=== PATIENT | female | born 1980 | race Caucasian/White ===

== ENCOUNTER 2016-10-07 05:36 | Inpatient (IN) | payer OTHER ==
[2016-10-07] VITALS (23 sets, daily range): BP systolic 102–138; BP diastolic 57–94; PULSE 80–113; RESP 14–20; TEMP 98.4; O2SAT 88–100
[2016-10-07] MEDS ORDERED: SODIUM CHLOR 0.9% 1000 ML INJ 1,000 ML IV ONE (05:41)
[2016-10-07] MEDS ORDERED: SODIUM CHLORIDE 0.9% FLUSH 10 ML FLUSH IVF PRN (05:45)
--- NOTE | 2016-10-07 05:52 | PD ---
HPI Chief Complaint: OD/ Ingestion Time Seen by Provider: 05:41 Travel History International Travel<30 days: No (unable to obtain) Contact w/Intl Traveler<30days: No (unable to obtain) History of Present Illness HPI The patient is a 36-year-old female who presents to the emergency department via EMS from [place], [place] after an overdose. According to the police affidavit the patient's wall approximately 20 Xanax tablets and a few Soma tablets, had been drinking alcohol, was found in her car by her father. EMS and the police were called, the patient was placed under a [place] act. According to EMS the patient was awake and alert when they arrived, however, became unresponsive in route to the hospital and they attempted to intubate the patient while they were pulling into the emergency department. EMS states there was unable to intubate the patient and then the patient did awaken and regained her gag reflex. Upon arrival the patient is somewhat somnolent, arouses to painful stimuli, but falls asleep easily. She is unable to provide any history. [facility] Past Medical History Medical History: Unable to Obtain Tetanus Vaccination: Unknown ?: Unknown Past Surgical History Surgical History: Unable to Obtain Social History Alcohol Use: Yes Tobacco Use: No (unable to obtain) Substance Use: Yes (apparently took 20 Xanax and a few Soma tablets earlier tonight) Allergies-Medications (Allergen,Severity, Reaction): Coded Allergies: UNOBTAINABLE (Unverified , 10/07/16) Reported Meds & Prescriptions Reported Meds & Active Scripts Active Active Prescriptions or Reported Medications Unobtainable Review of Systems ROS Limitations: Altered Mental Status, Poor Historian Except as stated in HPI: all other systems reviewed are Neg Psychiatric: Positive: Substance Abuse Physical Exam Exam Limitations: Clinical Condition, Intoxication, Altered Mental Status, Poor Historian Narrative GENERAL: 36-year-old female appears older than her stated age, arouses to painful stimuli, but falls asleep easily. SKIN: Focused skin assessment warm/dry. HEAD: Atraumatic. Normocephalic. EYES: Pupils equal and round. Pupils are 2 mm bilateral. Mild injection. ENT: No nasal bleeding or discharge. Mucous membranes pink and moist. Positive gag reflex. NECK: Trachea midline. No JVD. CARDIOVASCULAR: Regular rate and rhythm. No murmur appreciated. Heart rate in the 90s. RESPIRATORY: No accessory muscle use. Clear to auscultation. Breath sounds equal bilaterally. GASTROINTESTINAL: Abdomen soft, non-tender, nondistended. No rebound tenderness. MUSCULOSKELETAL: No obvious deformities. No clubbing. No cyanosis. No edema. NEUROLOGICAL: Eyes closed, nonverbal, arouses to painful stimuli. Back: No obvious deformity or trauma to the posterior aspect of the back and no obvious step-offs over the thoracic lumbar vertebrae. PSYCHIATRIC: Unable to assess. Data Data Last Documented VS Vital Signs Date Time Temp Pulse Resp B/P Pulse Ox O2 Delivery O2 Flow Rate FiO2 10/07/16 06:30 100 100 10/07/16 06:15 113 16 138/93 10/07/16 06:04 Nasal Cannula 3 Orders Electrocardiogram (10/07/16 05:41) Complete Blood Count With Diff (10/07/16 05:41) Comprehensive Metabolic Panel (10/07/16 05:41) Prothrombin Time / Inr (Pt) (10/07/16 05:41) Act Partial Throm Time (Ptt) (10/07/16 05:41) Urinalysis - C+S If Indicated (10/07/16 05:41) Chest, Single Ap (10/07/16 05:41) Ct Brain W/O Iv Contrast(Rout) (10/07/16 05:41) Iv Access Insert/Monitor (10/07/16 05:41) Cath For Specimen (10/07/16 05:41) Ecg Monitoring (10/07/16 05:41) Oximetry (10/07/16 05:41) Psych Screen (10/07/16 05:41) Sodium Chloride 0.9% Flush (Ns Flush) (10/07/16 05:45) Sodium Chlor 0.9% 1000 Ml Inj (Ns 1000 M (10/07/16 05:41) Drug Screen, Random Urine (10/07/16 05:41) Alcohol (Ethanol) (10/07/16 05:41) Salicylates (Aspirin) (10/07/16 05:41) Tylenol (Acetaminophen) (10/07/16 05:41) Resp Et Co2 Monitor (10/07/16 ) Etomidate Inj (Amidate Inj) (10/07/16 05:59) Etomidate Inj (Amidate Inj) (10/07/16 06:00) Succinylcholine Inj (Quelicin Inj) (10/07/16 06:00) Succinylcholine Inj (Quelicin Inj) (10/07/16 05:59) Chest, Single Ap (10/07/16 ) Midazolam Inj (Versed Inj) (10/07/16 06:15) Midazolam 100 Mg/Ml Inj (Versed 100 Mg/M (10/07/16 06:15) Urinary Catheter Insert/Apply (10/07/16 06:12) Ng Gastric Tube Insert/Monitor (10/07/16 06:12) Midazolam 100 Mg/Ml Inj (Versed 100 Mg/M (10/07/16 06:16) Arterial Blood Gas (Abg) (10/07/16 ) Admit Order (Ed Use Only) (10/07/16 06:33) Labs Laboratory Tests Test 10/07/16 10/07/16 05:45 05:55 White Blood Count 9.2 TH/MM3 Red Blood Count 4.96 MIL/MM3 Hemoglobin 14.4 GM/DL Hematocrit 43.2 % Mean Corpuscular Volume 87.1 FL Mean Corpuscular Hemoglobin 29.1 PG Mean Corpuscular Hemoglobin 33.4 % Concent Red Cell Distribution Width 15.8 % Platelet Count 334 TH/MM3 Mean Platelet Volume 8.6 FL Neutrophils (%) (Auto) 68.5 % Lymphocytes (%) (Auto) 24.1 % Monocytes (%) (Auto) 5.6 % Eosinophils (%) (Auto) 0.9 % Basophils (%) (Auto) 0.9 % Neutrophils # (Auto) 6.3 TH/MM3 Lymphocytes # (Auto) 2.2 TH/MM3 Monocytes # (Auto) 0.5 TH/MM3 Eosinophils # (Auto) 0.1 TH/MM3 Basophils # (Auto) 0.1 TH/MM3 CBC Comment DIFF FINAL Differential Comment Prothrombin Time 10.0 SEC Prothromb Time International 0.9 RATIO Ratio Activated Partial 25.5 SEC Thromboplast Time Sodium Level 143 MEQ/L Potassium Level 4.0 MEQ/L Chloride Level 109 MEQ/L Carbon Dioxide Level 26.8 MEQ/L Anion Gap 7 MEQ/L Blood Urea Nitrogen 8 MG/DL Creatinine 0.92 MG/DL Estimat Glomerular Filtration 70 ML/MIN Rate Random Glucose 102 MG/DL Calcium Level 8.5 MG/DL Total Bilirubin 0.2 MG/DL Aspartate Amino Transf 17 U/L (AST/SGOT) Alanine Aminotransferase 17 U/L (ALT/SGPT) Alkaline Phosphatase 78 U/L Total Protein 7.7 GM/DL Albumin 4.1 GM/DL Salicylates Level 5.1 MG/DL Acetaminophen Level 9.9 MCG/ML Ethyl Alcohol Level 237 MG/DL Urine Color LIGHT-YELLOW Urine Turbidity CLEAR Urine pH 6.0 Urine Specific [place] 1.004 Urine Protein NEG mg/dL Urine Glucose (UA) NEG mg/dL Urine Ketones NEG mg/dL Urine Occult Blood NEG Urine Nitrite NEG Urine Bilirubin NEG Urine Urobilinogen LESS THAN 2.0 MG/DL Urine Leukocyte Esterase NEG Urine RBC LESS THAN 1 /hpf Urine WBC LESS THAN 1 /hpf Urine Mucus FEW /lpf Microscopic Urinalysis Comment CATH-CULT NOT IND Urine Opiates Screen NEG Urine Barbiturates Screen NEG Urine Amphetamines Screen NEG Urine Benzodiazepines Screen POS Urine Cocaine Screen NEG Urine Cannabinoids Screen POS MDM Medical Decision Making Medical Screen Exam Complete: Yes Emergency Medical Condition: Yes Medical Record Reviewed: Yes Interpretation(s) EKG reveals normal sinus rhythm with a rate of 99. No ischemic changes or ectopy noted. Laboratory Tests Test 10/07/16 05:45 White Blood Count 9.2 TH/MM3 Red Blood Count 4.96 MIL/MM3 Hemoglobin 14.4 GM/DL Hematocrit 43.2 % Mean Corpuscular Volume 87.1 FL Mean Corpuscular Hemoglobin 29.1 PG Mean Corpuscular Hemoglobin 33.4 % Concent Red Cell Distribution Width 15.8 % Platelet Count 334 TH/MM3 Mean Platelet Volume 8.6 FL Neutrophils (%) (Auto) 68.5 % Lymphocytes (%) (Auto) 24.1 % Monocytes (%) (Auto) 5.6 % Eosinophils (%) (Auto) 0.9 % Basophils (%) (Auto) 0.9 % Neutrophils # (Auto) 6.3 TH/MM3 Lymphocytes # (Auto) 2.2 TH/MM3 Monocytes # (Auto) 0.5 TH/MM3 Eosinophils # (Auto) 0.1 TH/MM3 Basophils # (Auto) 0.1 TH/MM3 CBC Comment DIFF FINAL Differential Comment Prothrombin Time 10.0 SEC Prothromb Time International 0.9 RATIO Ratio Activated Partial 25.5 SEC Thromboplast Time Sodium Level 143 MEQ/L Potassium Level 4.0 MEQ/L Chloride Level 109 MEQ/L Carbon Dioxide Level 26.8 MEQ/L Anion Gap 7 MEQ/L Blood Urea Nitrogen 8 MG/DL Creatinine 0.92 MG/DL Estimat Glomerular Filtration 70 ML/MIN Rate Random Glucose 102 MG/DL Calcium Level 8.5 MG/DL Total Bilirubin 0.2 MG/DL Aspartate Amino Transf 17 U/L (AST/SGOT) Alanine Aminotransferase 17 U/L (ALT/SGPT) Alkaline Phosphatase 78 U/L Total Protein 7.7 GM/DL Albumin 4.1 GM/DL Salicylates Level 5.1 MG/DL Acetaminophen Level 9.9 MCG/ML Ethyl Alcohol Level 237 MG/DL CT of the brain is negative Last Impressions Head CT 10/07/16 0541 Signed Impressions: Service Date/Time: Friday, October 07, 2016 06:35 - CONCLUSION: Negative noncontrast CT brain. Darwin Mooney MD Chest X-Ray 10/07/16 0541 Signed Impressions: Service Date/Time: Friday, October 07, 2016 06:01 - CONCLUSION: The lungs are clear. Darwin Mooney MD Chest X-Ray 10/07/16 0000 Signed Impressions: Service Date/Time: Friday, October 07, 2016 06:19 - CONCLUSION: ET tube in good position. No infiltrates seen. Darwin Mooney MD Differential Diagnosis Differential diagnosis includes intentional overdose, accidental overdose, benzodiazepine overdose, alcohol intoxication, intracranial hemorrhage, metabolic encephalopathy, substance abuse. Narrative Course IV was established, labs are drawn and sent, and the patient was placed on cardiac telemetry monitoring and continuous pulse oximetry monitoring. EKG was ordered and interpreted. CT the brain was obtained. The patient said that was placed up at 30. The patient would arouse to painful stimuli and had a gag reflex, therefore, the patient was not intubated, but was monitored closely in the emergency department and placed on end-tidal CO2. The patient was reevaluated at 6 AM, her end-tidal CO2 and dropped, she required a chin lift and placement of an OP airway. The patient then had no gag reflex. Her respirations had slowed, therefore, the patient was intubated to protect her airway using RSI with etomidate and succinylcholine. Postintubation x-ray was obtained. The patient went to CT with respiratory therapy and nursing staff. The on-call desktop support technician was paged for admission. The patient had a Mota catheter and an OG placed. Post intubation ABG was obtained. Versed IV push and Versed drip was ordered as needed for sedation while intubated. Critical Care Narrative Aggregate critical care time was 45 minutes. Time to perform other separately billable procedures was not included in the critical care time. My time did not include minutes spent treating any other patients simultaneously or on activities that did not directly contribute to the patient's treatment. The services I provided to this patient were to treat and/or prevent clinically significant deterioration that could result in: Anoxia, hypoxia, aspiration, arrhythmia, . I provided critical care services requiring my management, as noted below: Chart data review, documentation time, medication orders and management, vital sign assessments/reviewing monitor data, ordering and reviewing lab tests, ordering and interpreting/reviewing x-rays and diagnostic studies, care of the patient and discussion of the patient with the admitting physicians. Procedures Procedure Narrative INTUBATION: The patient was put in optimal position for the procedure. Rapid sequence intubation was initiated by me using 20 milligrams of etomidate IV and 100 milligrams of succinylcholine IV. The patient was intubated with a 7-5 cuffed endotracheal tube. Tube placement was confirmed by visualization of the tube and balloon passing through the cords, capnometry and subsequent chest x- ray. Breath sounds were equal and well aerated bilaterally postintubation. No breath sounds over stomach. Patient tolerated procedure well. Physician Communication Physician Communication The on-call desktop support technician was paged for admission. I discussed the patient with Dr. Matson who agrees with admission. Diagnosis Primary Impression: Benzodiazepine overdose Qualified Code: T42.4X4A - Benzodiazepine overdose, undetermined intent, initial encounter Additional Impressions: Alcohol intoxication Qualified Code: F10.920 - Alcohol intoxication, uncomplicated Ingestion of substance Qualified Code: T65.94XA - Ingestion of substance, undetermined intent, initial encounter Admitting Information Admitting Physician Requests: Admit Scripts Unable to Obtain Active Prescriptions or Reported Meds Condition: Serious Yoni Encarnacion MD Oct 07, 2016 05:52
[2016-10-07] MEDS ORDERED: SUCCINYLCHOLINE CHLORIDE 200 MG/10 ML VIAL ONE (05:59)
[2016-10-07] MEDS ORDERED: ETOMIDATE 20 MG/10 ML VIAL ONE (05:59)
[2016-10-07] MEDS ORDERED: ETOMIDATE 20 MG/10 ML VIAL IV PUSH ONE (06:00)
[2016-10-07] MEDS ORDERED: SUCCINYLCHOLINE CHLORIDE 200 MG/10 ML VIAL IV PUSH ONE (06:00)
[2016-10-07 06:02] LABS: APTT (PATIENT) 25.5 SEC (24.3-30.1); INTERNATIONAL NORMALIZED RATIO 0.9 RATIO
[2016-10-07 06:04] LABS: AUTOMATED NEUTROPHIL # 6.3 TH/MM3 (1.8-7.7); BASOPHIL # 0.1 TH/MM3 (0-0.2); BASOPHIL % 0.9 % (0.0-2.0); EOSINOPHIL # 0.1 TH/MM3 (0-0.4); EOSINOPHIL % 0.9 % (0.0-4.0); HEMATOCRIT 43.2 % (35.0-46.0); HEMO FLAGS DIFF FINAL; LYMPH % 24.1 % (9.0-44.0); LYMPHOCYTE # 2.2 TH/MM3 (1.0-4.8); MEAN CELL VOLUME 87.1 FL (80.0-100.0); MEAN CORPUSCULAR HEMOGLOBIN 29.1 PG (27.0-34.0); MEAN CORPUSCULAR HGB CONC 33.4 % (32.0-36.0); MONO % 5.6 % (0.0-8.0); NEUT % 68.5 % (16.0-70.0); PLATELET COUNT 334 TH/MM3 (150-450); RED BLOOD COUNT 4.96 MIL/MM3 (4.00-5.30); RED CELL DISTRIBUTION WIDTH 15.8 % (11.6-17.2); WHITE BLOOD COUNT 9.2 TH/MM3 (4.0-11.0)
[2016-10-07] MEDS ORDERED: MIDAZOLAM HCL 2 MG/2 ML VIAL IV PUSH ONE (06:15)
[2016-10-07] MEDS ORDERED: MIDAZOLAM 100 MG/ML INJ 100 ML IV SCH (06:15)
[2016-10-07 06:16] LABS: ALT (GPT) 17 U/L (10-53); ANION GAP 7 MEQ/L (5-15); AST (GOT) 17 U/L (15-37); BICARBONATE 26.8 MEQ/L (21.0-32.0); BLOOD UREA NITROGEN 8 MG/DL (7-18); CHLORIDE 109 MEQ/L (98-107); GLOMERULAR FILTRATION RATE 70 ML/MIN (>89); SODIUM (NA) 143 MEQ/L (136-145)
[2016-10-07] MEDS ORDERED: MIDAZOLAM 100 MG/ML INJ 100 ML ONE (06:16)
[2016-10-07 06:18] LABS: ACETAMINOPHEN 9.9 MCG/ML (10.0-30.0); ALKALINE PHOSPHATASE 78 U/L (45-117); TOTAL BILIRUBIN ADULT 0.2 MG/DL (0.2-1.0)
--- NOTE | 2016-10-07 06:21 | RADRPT ---
EXAM DATE/TIME: 10/07/2016 06:01 [facility] COMPARISON: No previous studies available for comparison. INDICATIONS : Syncope, Shortness of breath. MEDICAL HISTORY : None. SURGICAL HISTORY : None. ENCOUNTER: Initial ACUITY: 1 day PAIN SCORE: 0/10 LOCATION: Bilateral chest FINDINGS: A single view of the chest demonstrates the lungs to be symmetrically aerated without evidence of mas s, infiltrate or effusion. The cardiomediastinal contours are unremarkable. Osseous structures are intact. CONCLUSION: The lungs are clear. Darwin Mooney MD on October 07, 2016 at 6:19 Board Certified Radiologist. This report was verified electronically.
--- NOTE | 2016-10-07 06:45 | RADRPT ---
EXAM DATE/TIME: 10/07/2016 06:19 [facility] COMPARISON: CHEST SINGLE AP, October 07, 2016, 6:01. INDICATIONS : Post intubation. MEDICAL HISTORY : None. SURGICAL HISTORY : None. ENCOUNTER: Initial ACUITY: 1 day PAIN SCORE: 0/10 LOCATION: Bilateral chest FINDINGS: Endotracheal tube tip well above the grupo. Gastric tube traverses the [id number]. The lungs ar e symmetrically aerated and clear. No pneumothorax. Both hemidiaphragms are well delineated. The h eart is normal in size. CONCLUSION: ET tube in good position. No infiltrates seen. Darwin Mooney MD on October 07, 2016 at 6:43 Board Certified Radiologist. This report was verified electronically.
--- NOTE | 2016-10-07 06:46 | RADRPT ---
EXAM DATE/TIME: 10/07/2016 06:35 [facility] COMPARISON: No previous studies available for comparison. INDICATIONS : Altered mental status, overdose. RADIATION DOSE: 41.41 CTDIvol (mGy) MEDICAL HISTORY : Non-responsive. SURGICAL HISTORY : Non-responsive. ENCOUNTER: Initial ACUITY: 1 day PAIN SCALE: Non-responsive LOCATION: cranial TECHNIQUE: Multiple contiguous axial images were obtained of the head. Using automated exposure control and adj ustment of the mA and/or kV according to patient size, radiation dose was kept as low as reasonably a chievable to obtain optimal diagnostic quality images. DICOM format image data is available electro nically for review and comparison. FINDINGS: CEREBRUM: The ventricles are normal for age. No evidence of midline shift, mass lesion, hemorrhage or acute in farction. No extra-axial fluid collections are seen. POSTERIOR FOSSA: The cerebellum and brainstem are intact. The 4th ventricle is midline. The cerebellopontine angle i s unremarkable. EXTRACRANIAL: The visualized portion of the orbits is intact. SKULL: The calvaria is intact. No evidence of skull fracture. CONCLUSION: Negative noncontrast CT brain. Darwin Mooney MD on October 07, 2016 at 6:44 Board Certified Radiologist. This report was verified electronically.
[2016-10-07 07:18] LABS: BLOOD GAS BASE EXCESS -3.9 mmol/L (-2-2); BLOOD GAS CARBOXYHEMOGLOBIN 3.6 % (0-4); BLOOD GAS HCO3 21 mmol/L (22-26); BLOOD GAS METHEMOGLOBIN 0.7 % (0-2); BLOOD GAS O2 HGB SATURATION 95 % (90-100); BLOOD GAS OXYGEN CONTENT 16.9 Vol % (12.0-20.0); BLOOD GAS PCO2 40 mmHg (38-42); BLOOD GAS PO2 150 mmHG (61-120); BLOOD GAS TOTAL HGB 12.5 G/DL (12.0-16.0); CRITICAL VALUE NO; FIO2 40 %; OXYGEN DEVICE VENT; TEMP CORR TO 98.6; VENT SETTINGS AC14/500/PEEP5
[2016-10-07 07:19] LABS: DRAW SITE RT BRACHIAL; NUMBER OF ARTERIAL PUNCTURES 1; STAT YES; ULNAR PULSE PRESENT
[2016-10-07 07:20] LABS: AMPHETAMINE, URINE NEG (NEG); BARBITURATES, URINE NEG (NEG); COCAINE, URINE NEG (NEG)
[2016-10-07 07:32] LABS: BLOOD, URINE NEG (NEG); COMMENT (UR) CATH-CULT NOT IND; CULTURE IF INDICATED CATH CULTURE NOT IND; GLUCOSE,URINE NEG (NEG); KETONE, URINE NEG (NEG); MUCUS URINE FEW /lpf (OCC); NITRITE,URINE NEG (NEG); URINE COLOR LIGHT-YELLOW (YELLW/STRAW)
[2016-10-07] MEDS ORDERED: LORazepam 2 MG/ML VIAL IV PRN (08:45)
[2016-10-07] MEDS ORDERED: MAGNESIUM HYDROXIDE SUSP 30 ML CUP PO PRN (08:45)
[2016-10-07] MEDS ORDERED: BISACODYL 10 MG SUPP RECTAL PRN (08:45)
[2016-10-07] MEDS ORDERED: ONDANSETRON HCL 4 MG/2 ML VIAL IV PRN (08:45)
[2016-10-07] MEDS ORDERED: LACTULOSE SYRUP 20 GM/30 ML CUP PO PRN (08:45)
[2016-10-07] MEDS ORDERED: MISCELLANEOUS NURSING INFORMATION XX SCH (08:45)
[2016-10-07] MEDS ORDERED: CHLORHEXIDINE GLUCONATE 2 % 1 PACK (2 CLOTHS) TOP PRN (08:45)
[2016-10-07] MEDS ORDERED: RESP: ALBUTEROL 2.5 MG/IPRATROPIUM 0.5 MG NEB (PRN) INH (08:45)
[2016-10-07] MEDS ORDERED: MORPHINE SULFATE 4 MG/ML INJ IV PRN (08:45)
[2016-10-07] MEDS ORDERED: PROPOFOL 1000 MG/100 ML INJ 100 ML IV SCH (08:45)
[2016-10-07] MEDS ORDERED: SENNOSIDES 8.6 MG TAB PO PRN (08:45)
--- NOTE | 2016-10-07 08:56 | HHI.HP ---
HPI Service Critical Care Medicine Primary Care Physician Unknown Admission Diagnosis benzodiazepine overdose, Soma overdose, alcohol intoxication Diagnosis: (1) Acute respiratory failure Diagnosis: Principal (2) Toxic encephalopathy Diagnosis: Principal (3) Suicidal ideation Diagnosis: Secondary (4) Benzodiazepine overdose Diagnosis: Secondary (5) Alcohol intoxication Diagnosis: Secondary Chief Complaint: [place] Act Travel History International Travel<30 Days: No (unable to obtain) Contact w/Intl Traveler <30 Da: No (unable to obtain) History of Present Illness 36 y/o woamn with intentional ingestion of xanax multiple tabs, soma, and etoh became progressively more obtunded requiring intubation for airway protection and mechanical ventilation,. Review of Systems ROS Unobtainable, obtunded. No family. Past Family Social History Allergies: Coded Allergies: UNOBTAINABLE (Unverified , 10/07/16) Past Medical History Past Medical History Medical History: Unable to Obtain Tetanus Vaccination: Unknown ?: Unknown Past Surgical History Surgical History: Unable to Obtain Social History Alcohol Use: Yes Tobacco Use: No (unable to obtain) Substance Use: Yes (apparently took 20 Xanax and a few Soma tablets earlier tonight) Allergies-Medications Allergies-Medications (Allergen,Severity, Reaction): Coded Allergies: UNOBTAINABLE (Unverified , 10/07/16) Reported Meds & Prescriptions Reported Meds & Active Scripts Active Active Prescriptions or Reported Medications Unobtainable Physical Exam Vital Signs Vital Signs Date Time Temp Pulse Resp B/P Pulse Ox O2 Delivery O2 Flow Rate FiO2 10/07/16 08:38 99 30 10/07/16 07:20 100 40 10/07/16 07:10 80 18 125/80 99 Ventilator 10/07/16 06:45 92 14 113/79 100 Ventilator 40 10/07/16 06:40 100 40 10/07/16 06:36 92 16 128/68 100 Ventilator 10/07/16 06:30 100 100 10/07/16 06:15 113 16 138/93 100 10/07/16 06:08 112 16 122/89 100 10/07/16 06:06 40 10/07/16 06:04 101 18 106/71 90 Nasal Cannula 3 10/07/16 06:00 97 18 102/57 88 Nasal Cannula 3 10/07/16 05:38 100 14 119/82 98 Physical Exam Gen: Obtunded. Head: Atraumatic. Neck: Supple, orally intubated. Lungs: Few scattered rhonchi, no wheezes, good air movement. Heart: NL S1S2, RRR, no JVD. Abdomen: Soft, no guarding, BS active. Benign. Extremities: Tepid, well perfused. Neuro: Withdraws 4 limbs to stimulation. KAVITA, 3 mm. Gag, cough intact. Slow spontaneous respirations. Laboratory Laboratory Tests Test 10/07/16 10/07/16 10/07/16 05:45 05:55 07:12 White Blood Count 9.2 Red Blood Count 4.96 Hemoglobin 14.4 Hematocrit 43.2 Mean Corpuscular Volume 87.1 Mean Corpuscular Hemoglobin 29.1 Mean Corpuscular Hemoglobin 33.4 Concent Red Cell Distribution Width 15.8 Platelet Count 334 Mean Platelet Volume 8.6 Neutrophils (%) (Auto) 68.5 Lymphocytes (%) (Auto) 24.1 Monocytes (%) (Auto) 5.6 Eosinophils (%) (Auto) 0.9 Basophils (%) (Auto) 0.9 Neutrophils # (Auto) 6.3 Lymphocytes # (Auto) 2.2 Monocytes # (Auto) 0.5 Eosinophils # (Auto) 0.1 Basophils # (Auto) 0.1 CBC Comment DIFF FINAL Differential Comment Prothrombin Time 10.0 Prothromb Time International 0.9 Ratio Activated Partial 25.5 Thromboplast Time Sodium Level 143 Potassium Level 4.0 Chloride Level 109 Carbon Dioxide Level 26.8 Anion Gap 7 Blood Urea Nitrogen 8 Creatinine 0.92 Estimat Glomerular Filtration 70 Rate Random Glucose 102 Calcium Level 8.5 Total Bilirubin 0.2 Aspartate Amino Transf 17 (AST/SGOT) Alanine Aminotransferase 17 (ALT/SGPT) Alkaline Phosphatase 78 Total Protein 7.7 Albumin 4.1 Salicylates Level 5.1 Acetaminophen Level 9.9 Ethyl Alcohol Level 237 Urine Color LIGHT-YELLOW Urine Turbidity CLEAR Urine pH 6.0 Urine Specific [place] 1.004 Urine Protein NEG Urine Glucose (UA) NEG Urine Ketones NEG Urine Occult Blood NEG Urine Nitrite NEG Urine Bilirubin NEG Urine Urobilinogen LESS THAN 2.0 Urine Leukocyte Esterase NEG Urine RBC LESS THAN 1 Urine WBC LESS THAN 1 Urine Mucus FEW Microscopic Urinalysis Comment CATH-CULT NOT IND Urine Opiates Screen NEG Urine Barbiturates Screen NEG Urine Amphetamines Screen NEG Urine Benzodiazepines Screen POS Urine Cocaine Screen NEG Urine Cannabinoids Screen POS Blood Gas Puncture Site RT BRACHIAL Blood Gas Patient Temperature 98.6 Blood Gas HCO3 21 Blood Gas Base Excess -3.9 Blood Gas Oxygen Saturation 95 Arterial Blood pH 7.34 Arterial Blood Partial 40 Pressure CO2 Arterial Blood Partial 150 Pressure O2 Arterial Blood Oxygen Content 16.9 Arterial Blood 3.6 Carboxyhemoglobin Arterial Blood Methemoglobin 0.7 Blood Gas Hemoglobin 12.5 Oxygen Delivery Device VENT Blood Gas Ventilator Setting AC14/500/PEEP5 Blood Gas Inspired Oxygen 40 Result Diagram: 10/07/1645 10/07/1645 Assessment and Plan Problem List: (1) Acute respiratory failure ICD Code: J96.00 Status: Acute (2) Toxic encephalopathy ICD Code: G92 Status: Acute (3) Suicidal ideation ICD Code: R45.851 Status: Acute (4) Benzodiazepine overdose ICD Code: T42.4X1A Status: Acute (5) Alcohol intoxication ICD Code: F10.929 Status: Acute Assessment and Plan Plan: 1. PRVC mode. 2. Propofol prn. 3. NG to LIS. 4. Protonox. 5. Lovenox DVT px. 6. Hydration. Overall impression: Critically ill with respiratory failure after intentional drug OD. Unable to wean from ventilator today. Critical care 38 mins Problem Qualifiers (1) Benzodiazepine overdose: Qualified Code: T42.4X2A - Benzodiazepine overdose, intentional self-harm, initial encounter (2) Alcohol intoxication: Qualified Code: F10.920 - Alcohol intoxication, uncomplicated Randal Farmer MD Oct 07, 2016 08:55
[2016-10-07] MEDS: ENOXAPARIN SODIUM 40 MG/0.4 ML SYRINGE SQ SCH (09:31)
[2016-10-07] MEDS: PANTOPRAZOLE SODIUM 40 MG VIAL IV SCH (09:32)
[2016-10-07] MEDS: SODIUM CHLOR 0.9% 1000 ML INJ 1,000 ML IV SCH ×2 (09:32→23:18)
[2016-10-07] MEDS: DOCUSATE SODIUM 50 MG/SENNA 8.6 MG TAB PO SCH ×2 (09:32→21:00)
--- NOTE | 2016-10-07 16:51 | EKG ---
Date Performed: 10/07/2016 Time Performed: 05:42:54 PTAGE: 36 years EKG: Sinus rhythm POSSIBLE LEFT ATRIAL ENLARGEMENT BORDERLINE ECG NO PREVIOUS TRACING DOCTOR: Jair Schulz Interpretating Date/Time 10/07/2016 16:48:21
[2016-10-07] MEDS: NICOTINE 21 MG/24 HR PATCH T-DERMAL SCH (18:25)
[2016-10-07] MEDS: ACETAMINOPHEN 325 MG TAB PO PRN (18:36)
[2016-10-08 04:00] VITALS: BP 130/82; PULSE 98; RESP 20; TEMP 98.9; O2SAT 97
[2016-10-08] MEDS: CHLORHEXIDINE GLUCONATE 2 % 1 PACK (2 CLOTHS) TOP SCH (04:00)
[2016-10-08 05:24] LABS: BICARBONATE 24.8 MEQ/L (21.0-32.0); POTASSIUM 3.4 MEQ/L (3.5-5.1)
[2016-10-08 08:00] VITALS: BP 144/84; PULSE 105; RESP 18; TEMP 99; O2SAT 99
[2016-10-08] MEDS: SODIUM CHLOR 0.9% 1000 ML INJ 1,000 ML IV SCH (08:31)
[2016-10-08] MEDS: ACETAMINOPHEN 325 MG TAB PO PRN ×2 (08:48→13:52)
[2016-10-08] MEDS: REMOVE OLD PATCH T-DERMAL SCH (08:49)
[2016-10-08] MEDS: DOCUSATE SODIUM 50 MG/SENNA 8.6 MG TAB PO SCH ×2 (08:49→20:28)
[2016-10-08] MEDS: NICOTINE 21 MG/24 HR PATCH T-DERMAL SCH (08:49)
[2016-10-08] MEDS: ENOXAPARIN SODIUM 40 MG/0.4 ML SYRINGE SQ SCH (08:49)
[2016-10-08] MEDS: PANTOPRAZOLE SODIUM 40 MG VIAL IV SCH (08:49)
[2016-10-08 11:11] VITALS: O2SAT 99
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
[2016-10-08 12:00] VITALS: BP 138/91; PULSE 98; RESP 18; TEMP 98.2; O2SAT 100
[2016-10-08] MEDS ORDERED: NAPROXEN 500 MG TAB PO ONE (14:45)
[2016-10-08] MEDS ORDERED: predniSONE 20 MG TAB PO ONE (14:45)
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
[2016-10-08 16:00] VITALS: BP 157/97; PULSE 105; RESP 18; TEMP 98.5; O2SAT 98
--- NOTE | 2016-10-08 16:18 | RADRPT ---
EXAM DATE/TIME: 10/08/2016 15:16 [facility] COMPARISON: No previous studies available for comparison. INDICATIONS : Right side neck pain for two days. No known trauma. MEDICAL HISTORY : None. SURGICAL HISTORY : None. ENCOUNTER: Initial ACUITY: 2 days PAIN SCORE: 7/10 LOCATION: Right cervical spine. FINDINGS: Two projection examination was performed. There is normal alignment and curvature of the vertebral b odies down to the level of C7. No evidence of fracture or subluxation. Vertebral body height is lat[place] ntained. The disc spaces are maintained. The prevertebral soft tissues are of normal thickness. Th e atlanto-axial articulation is intact. CONCLUSION: Anatomic alignment otherwise negative. Steven Ann MD FACR on October 08, 2016 at 16:15 Board Certified Radiologist. This report was verified electronically.
--- NOTE | 2016-10-08 16:21 | RADRPT ---
EXAM DATE/TIME: 10/08/2016 15:21 [facility] COMPARISON: No previous studies available for comparison. INDICATIONS : Right shoulder pain for two days. No known trauma. MEDICAL HISTORY : None. SURGICAL HISTORY : None. ENCOUNTER: Initial ACUITY: 2 days PAIN SCORE: 8/10 LOCATION: Right shoulder. FINDINGS: Multiple view examination of the right shoulder demonstrates no evidence of fracture or dislocation. The glenohumeral and acromioclavicular joints are maintained. There is normal range of motion betwe en internal and external rotation. Bony mineralization is normal. CONCLUSION: Negative for fracture. Steven Ann MD FACR on October 08, 2016 at 16:18 Board Certified Radiologist. This report was verified electronically.
--- NOTE | 2016-10-08 16:22 | RADRPT ---
EXAM DATE/TIME: 10/08/2016 15:23 [facility] COMPARISON: No previous studies available for comparison. INDICATIONS : Right clavicle pain. No known trauma. MEDICAL HISTORY : None. SURGICAL HISTORY : None. ENCOUNTER: Initial ACUITY: 2 days PAIN SCORE: 7/10 LOCATION: Right clavicle. FINDINGS: Two view examination of the right clavicle demonstrates no evidence of fracture. The sternoclavicula r joints and acromioclavicular joints are maintained. Bony mineralization is normal. CONCLUSION: Negative for fracture. Steven Ann MD FACR on October 08, 2016 at 16:19 Board Certified Radiologist. This report was verified electronically.
[2016-10-08 20:00] VITALS: BP 147/98; PULSE 90; RESP 20; TEMP 98.1; O2SAT 96
[2016-10-08] MEDS: predniSONE 10 MG TAB PO SCH (20:28)
[2016-10-08] MEDS: NAPROXEN 250 MG TAB PO SCH (20:28)
[2016-10-09] VITALS: BP 156/99; PULSE 91; RESP 20; TEMP 98; O2SAT 98
[2016-10-09 04:00] VITALS: BP 151/101; PULSE 99; RESP 18; TEMP 97.9; O2SAT 99
[2016-10-09] MEDS: CHLORHEXIDINE GLUCONATE 2 % 1 PACK (2 CLOTHS) TOP SCH (04:00)
[2016-10-09] MEDS: ACETAMINOPHEN 325 MG TAB PO PRN (05:00)
[2016-10-09 07:01] LABS: HEMATOCRIT 39.1 % (35.0-46.0); MEAN CELL VOLUME 86.7 FL (80.0-100.0); MEAN CORPUSCULAR HGB CONC 33.5 % (32.0-36.0); PLATELET COUNT 297 TH/MM3 (150-450); RED BLOOD COUNT 4.51 MIL/MM3 (4.00-5.30); RED CELL DISTRIBUTION WIDTH 15.6 % (11.6-17.2); REVIEW FLAG FINAL; WHITE BLOOD COUNT 12.4 TH/MM3 (4.0-11.0)
[2016-10-09 07:29] LABS: BICARBONATE 24.1 MEQ/L (21.0-32.0); POTASSIUM 4.4 MEQ/L (3.5-5.1)
[2016-10-09 08:00] VITALS: BP 136/96; PULSE 104; RESP 16; TEMP 97.8; O2SAT 100
[2016-10-09] MEDS: SODIUM CHLOR 0.9% 1000 ML INJ 1,000 ML IV SCH (08:21)
[2016-10-09] MEDS: REMOVE OLD PATCH T-DERMAL SCH (09:00)
[2016-10-09] MEDS: DOCUSATE SODIUM 50 MG/SENNA 8.6 MG TAB PO SCH (09:12)
[2016-10-09] MEDS: predniSONE 10 MG TAB PO SCH (09:12)
[2016-10-09] MEDS: NAPROXEN 250 MG TAB PO SCH (09:12)
[2016-10-09] MEDS: PANTOPRAZOLE SODIUM 40 MG VIAL IV SCH (09:13)
[2016-10-09] MEDS: ENOXAPARIN SODIUM 40 MG/0.4 ML SYRINGE SQ SCH (09:13)
[2016-10-09] MEDS: NICOTINE 21 MG/24 HR PATCH T-DERMAL SCH (09:14)
[2016-10-09 11:00] VITALS: BP 136/96; PULSE 104; RESP 16; TEMP 97.8; O2SAT 100
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
[2016-10-09] MEDS ORDERED: PRED10 PO (15:08)
[2016-10-09] MEDS ORDERED: NAPR250T PO (15:08)
== END 2016-10-09 16:25 | disposition home or self-care (01) | DRG 917 ==
LOC: NEPC 05:36 → NEDA 06:34 → N03B 08:29 → N04B 21:45
PROVIDERS: ADMIT Hospitalist; ATTEND Hospitalist
PROC: 5A1935Z Respiratory Ventilation, Less than 24 Consecutive Hours (ICD-10-PCS; principal; 2016-10-07)
PROC: 0BH17EZ Insertion of Endotracheal Airway into Trachea, Via Natural or Artificial Opening (ICD-10-PCS; 2016-10-07)
DX: T42.4X2A Poisoning by benzodiazepines, intentional self-harm, initial encounter (principal); J96.00 Acute respiratory failure, unspecified whether with hypoxia or hypercapnia; G92 Toxic encephalopathy; R45.851 Suicidal ideations; S19.9XXA Unspecified injury of neck, initial encounter; S29.9XXA Unspecified injury of thorax, initial encounter; S49.91XA Unspecified injury of right shoulder and upper arm, initial encounter; F10.120 Alcohol abuse with intoxication, uncomplicated; F12.90 Cannabis use, unspecified, uncomplicated; F41.9 Anxiety disorder, unspecified; F43.24 Adjustment disorder with disturbance of conduct; T42.8X2A Poisoning by antiparkinsonism drugs and other central muscle-tone depressants, intentional self-harm, initial encounter; Y04.2XXA Assault by strike against or bumped into by another person, initial encounter; Y90.7 Blood alcohol level of 200-239 mg/100 ml; Y92.019 Unspecified place in single-family (private) house as the place of occurrence of the external cause
CPT/HCPCS: 31500; 36600; 51702; 70450; 71010; 72040; 73000; 73030; 76642; 80048; 80053; 80307; 81001; 82805; 84703; 85025; 85027; 85610; 85730; 87641; 93005; 94002; 96374; C9113; J0330; J1650; J2250; J7030; J7512